=== PATIENT | male | born 1975 | race Caucasian/White ===

== ENCOUNTER 2016-08-27 23:28 | Emergency (ER) | payer BC, OTHER ==
--- NOTE | 2016-08-27 23:50 | Emergency Department Record ---
History of Present Illness - General Chief Complaint: General Stated Complaint: CONSTANT HICCUPS x3 DAYS Time Seen by Provider: 08/27/16 23:40 Source: Patient, Family Mode of Arrival: Ambulatory Limitations: No limitations - History of Present Illness Initial Comments: 41 yo male presents with 3 days of nearly constant hiccups. He has had similar symptoms in the past. Currently, except for this morning for a few hours, the hiccups have be present. A few years ago they lasted 3 days as well. No fevers. He has some reflux associated. No cough. No changes in bowel movements. No new medications. MD Complaint: Other (Hiccups) -: Days(s) (3) Location: Epigastric Radiation: None Migration to: No migration Severity: Moderate Consistency: Constant Improves With: Nothing Worsens With: Eating Associated Symptoms: Denies other symptoms - Related Data Home Medications Medication Instructions Recorded Confirmed Last Taken Cetirizine HCl [Zyrtec] 10 mg PO DAILY 08/27/16 08/27/16 Unknown Previous Rx's Medication Instructions Recorded Baclofen 10 mg PO TID #20 tablet 08/28/16 Allergies Allergy/AdvReac Type Severity Reaction Status Date / Time No Known Drug Allergies Allergy Verified 08/27/16 23:36 Travel Screening - Travel/Exposure Within Last 30 Days Have you traveled within the last 30 days?: No Review of Systems Constitutional: Denies: Chills, Fever, Weakness Eyes: Denies: Eye discharge, Eye pain ENT: Denies: Congestion, Throat pain Respiratory: Denies: Cough Cardiovascular: Denies: Chest pain, Palpitations, Syncope Endocrine: Denies: Fatigue, Polydipsia, Polyuria Gastrointestinal: Reports: Abdominal pain (from hiccups) Genitourinary: Denies: Dysuria Musculoskeletal: Denies: Myalgia Skin: Denies: Change in color, Rash Neurological: Denies: Headache, Numbness, Weakness Psychiatric: Denies: Anxiety Hematological/Lymphatic: Denies: Easy bleeding, Easy bruising Past Medical History - SOCIAL HISTORY Smoking Status: Never smoker Alcohol Use: None Drug Use: None - RESPIRATORY Hx Respiratory Disorders: No - CARDIOVASCULAR Hx Cardio Disorders: No - NEURO Hx Neuro Disorders: No - GI Hx GI Disorders: No - Hx Genitourinary Disorders: No - ENDOCRINE Hx Endocrine Disorders: No - MUSCULOSKELETAL Hx Musculoskeletal Disorders: No - PSYCH Hx Psych Problems: No - HEMATOLOGY/ONCOLOGY Hx Hematology/Oncology Disorders: No Family Medical History Any Significant Family History?: No Physical Exam - General General Appearance: Alert, Oriented x3, Cooperative, No acute distress Limitations: No limitations - Head Head exam: Normal inspection - Eye Eye exam: Normal appearance, PERRL. negative: Conjunctival injection - ENT ENT exam: Normal exam, Mucous membranes moist. negative: TM's normal bilaterally (Left TM with a hair on the ear drum) Ear exam: Normal external inspection Nasal Exam: Normal inspection. negative: Discharge, Sinus tenderness Mouth exam: Normal external inspection, Tongue normal Teeth exam: Normal inspection. negative: Dental caries Throat exam: Normal inspection. negative: Tonsillar erythema, Tonsillar exudate - Neck Neck exam: Normal inspection, Full ROM. negative: Tenderness - Respiratory Respiratory exam: Normal lung sounds bilaterally. negative: Respiratory distress, Rhonchi, Stridor, Wheezes - Cardiovascular Cardiovascular Exam: Regular rate, Normal rhythm, Normal heart sounds - GI/Abdominal GI/Abdominal exam: Soft. negative: Distended, Guarding, Rebound, Rigid, Tenderness - Rectal Rectal exam: Deferred - exam: Deferred - Extremities Extremities exam: Normal inspection, Full ROM, Normal capillary refill. negative: Tenderness - Back Back exam: Reports: Normal inspection, Full ROM. Denies: Muscle spasm, Rash noted, Tenderness - Neurological Neurological exam: Alert, Normal gait, Oriented X3, Reflexes normal - Psychiatric Psychiatric exam: Normal affect, Normal mood - Skin Skin exam: Dry, Intact, Normal color, Warm Course Vital Signs 08/27/16 08/27/16 23:34 23:37 Temperature 97.7 F 97.7 F Pulse Rate [ 96 H Pulse Ox Probe] Respiratory 18 Rate Blood Pressure 154/97 [Left Arm] Pulse Ox 97 - Reevaluation(s) Reevaluation #1: IV Reglan given for his persistent hiccups His left TM did have a hair on the ear drum. Per review Of [facility] this is known to cause hiccups as well The hair was gently irrigated with warm water and diluted Peroxide and was easily removed A uvular lift was attempted as well Ice cold water provided. 08/28/16 00:17 Reevaluation #2: No improvement with hiccups I discussed with patient low dose Ketamine as been reported with success as well in dose well below sedation level dosing He agrees with trial of Ketamine as well He will be place on the monitor 08/28/16 00:33 Reevaluation #3: The patient was given 30mg of Ketamine slow IVP He had immediate resolution of hiccups He tolerated the Ketamine very well without any sedation or side effects. 08/28/16 00:49 Reevaluation #4: Initial labs hemolyzed Repeat labs reviewed No acute changes except BUN 24. Likely some mild dehydration from constant hiccups 1000ml NS given 08/28/16 00:57 The patient remains hiccups free since 00:35 He is A and O x3 doing very well after the medications. 08/28/16 00:59 Reevaluation #5: No hiccups No sign of sedation He will be ambulated and likely DC home We discussed close followup with his PCP We discussed no driving if he takes the Baclofen if hiccups return 08/28/16 01:09 Medical Decision Making - Lab Data Result diagrams: 08/28/16 00:38 08/28/16 00:00 Disposition Disposition: Discharge Clinical Impression: Hiccups Disposition: Home, Self-Care Condition: (1) Good Instructions: Hiccups (ED) Additional Instructions: Call your doctor Monday for close follow up Take the Baclofen as directed. Avoid driving as this causes drowsiness. No Driving within 24 hours of taking Baclofen Prescriptions: Baclofen 10 mg PO TID #20 tablet Forms: Patient Portal Access Time of Disposition: 01:11
[2016-08-27] MEDS: DIPHENHYDRAMINE HCL IV 50 MG/ML VIAL IVP ONE (23:58)
[2016-08-27] MEDS: 0.9 % SODIUM CHLORIDE 1,000 ML BAG IV ONE (23:58)
[2016-08-27] MEDS: METOCLOPRAMIDE HCL 10 MG/2 ML VIAL IVP ONE (23:58)
[2016-08-28 00:18] LABS: BASO % 0.6 % (0-6); EOS % 3.2 % (0-6); GRAN % 72.8 % (47-80); HEMATOCRIT 52.6 % (42.0-52.0); LYMPH % 13.4 % (16-45); MEAN CELL VOLUME 85.5 fl (81-97); MEAN CORPUSCULAR HEMOGLOBIN 29.2 pg (27-33); MEAN CORPUSCULAR HGB CONC 34.2 g/dl (32-36); MEAN PLATELET VOLUME 11.3 fl (7.4-10.4); PLATELET COUNT 430 K/uL (130-400); RED BLOOD COUNT 6.15 M/uL (4.40-5.70); RED CELL DISTRIBUTION WIDTH 17.4 % (11.5-14.5)
[2016-08-28 00:34] LABS: EST GLOMERULAR FILTRATION RATE > 60 ml/min
[2016-08-28] MEDS: KETAMINE 500 MG/10 ML IV ONE (00:35)
[2016-08-28 00:41] LABS: BASO % 0.5 % (0-6); EOS % 3.1 % (0-6); GRAN % 73.9 % (47-80); HEMATOCRIT 48.8 % (42.0-52.0); HEMOGLOBIN 16.4 gm/dl (14.0-18.0); LYMPH % 12.4 % (16-45); MEAN CELL VOLUME 86.8 fl (81-97); MEAN CORPUSCULAR HEMOGLOBIN 29.2 pg (27-33); MEAN CORPUSCULAR HGB CONC 33.6 g/dl (32-36); MEAN PLATELET VOLUME 10.8 fl (7.4-10.4); MONO % 10.1 % (0-9); PLATELET COUNT 385 K/uL (130-400); RED BLOOD COUNT 5.62 M/uL (4.40-5.70); RED CELL DISTRIBUTION WIDTH 15.9 % (11.5-14.5); WHITE BLOOD COUNT W/O DIFF 12.4 K/uL (4.2-12.2)
[2016-08-28] MEDS: KETAMINE HCL 10 MG/ML (20ML) VIAL *PACU IV STA (00:50)
[2016-08-28 00:55] LABS: ALB/GLOB RATIO 1.3 (1.1-1.8); ALBUMIN 3.7 gm/dL (3.5-5.0); BLOOD UREA NITROGEN 24 mg/dL (9-20); GLUCOSE,RANDOM 74 mg/dL (70-110); TOTAL PROTEIN 6.6 gm/dL (6.3-8.2)
[2016-08-28 00:56] LABS: ALKALINE PHOSPHATASE 46 U/L (38-126); ALT/SGPT 70 U/L (21-72); AST/SGOT 45 U/L (17-59)
== END 2016-08-28 01:20 | disposition home or self-care (01) ==
LOC: ER 23:28
DX: R06.6 Hiccough (principal); R10.13 Epigastric pain
CPT/HCPCS: 80053; 85025; 96374; 96375; 99284; J1200; J2765; J7030